=== PATIENT | male | born 1990 | race African-American/Black ===

== ENCOUNTER 2024-12-23 17:33 | Emergency (ER) | payer OTHER ==
[~2024-12-23] VITALS: Ht 180.3 cm; Wt 81.8 kg
[2024-12-23 17:38] VITALS: TEMP 98
[2024-12-23] MEDS ORDERED: BUPR-50 PO (17:42)
[2024-12-23 21:40] VITALS: BP 118/69; PULSE 74; RESP 18; O2SAT 99
[2024-12-23] MEDS: LIDOCAINE 5% TRANSDERMAL PATCH TD ONE (22:38)
[2024-12-23] MEDS: methocarbamoL 500 MG TABLET PO ONE (22:39)
[2024-12-23] MEDS: ACETAMINOPHEN 500 MG TABLET PO ONE (22:39)
[2024-12-23] MEDS: IBUPROFEN 400 MG TABLET PO ONE (22:39)
[2024-12-23] MEDS ORDERED: METH-812 PO (23:10)
== END 2024-12-24 00:24 | disposition home or self-care (01) ==
LOC: EMS 17:33
DX: S39.012A Strain of muscle, fascia and tendon of lower back, initial encounter (principal); F32.A Depression, unspecified; Z79.899 Other long term (current) drug therapy; X50.0XXA Overexertion from strenuous movement or load, initial encounter; Y93.89 Activity, other specified; Y92.89 Other specified places as the place of occurrence of the external cause; Y99.8 Other external cause status
CPT/HCPCS: 99284; Z7502; Z7610